=== PATIENT | female | born 2000 | race Caucasian/White ===

== ENCOUNTER 2022-02-18 02:15 | Emergency (ER) | payer OTHER ==
[2022-02-18] MEDS ORDERED: Ondansetron 4 MG/2 ML SDV IVPUSH ONE (02:38)
[2022-02-18] MEDS ORDERED: Ketorolac 15 MG/ML SDV IVPUSH ONE (02:39)
[2022-02-18] MEDS ORDERED: Sodium Chloride 0.9% 1,000 ML IV SCH (02:45)
[2022-02-18 03:21] LABS: CHLORIDE,CL 104 mmol/L (98-107); SODIUM,NA 140 mmol/L (136-145)
[2022-02-18 03:24] LABS: ANION GAP 16.4 mmol/L (5-15); ESTIMATED GFR 125 mL/min (>=60)
[2022-02-18 03:25] LABS: PTT,PARTIAL THROMBOPLSTIN TIME 27.4 SEC (20.5-30.9)
[2022-02-18] MEDS ORDERED: cefTRIAXone 1 GM Vial IVPUSH ONE (03:55)
[2022-02-18] MEDS ORDERED: Take Home: Doxycycline 100 MG Tab, 4 Tab Pack PO ONE (03:56)
[2022-02-18] MEDS ORDERED: Take Home: metroNIDAZOLE 500 MG Tab, 4 Tab Pack PO ONE (03:56)
[2022-02-22 11:11] LABS: C.TRACHOMATIS BY TMA Negative (Negative); N.GONORRHOEAE BY TMA Negative (Negative)
== END 2022-02-18 04:44 | disposition home or self-care (01) ==
LOC: VM.ED 02:15
DX: N73.9 Female pelvic inflammatory disease, unspecified (principal)
CPT/HCPCS: 36415; 80053; 81003; 81025; 83605; 83735; 85025; 85610; 85730; 86140; 87040; 87070; 87075; 87491; 87591; 96361; 96374; 96375; 99283; A9270; J0696; J1885; J2405; J7030; 87077; 99284